=== PATIENT | male | born 1945 | race Hispanic/Latino ===

== ENCOUNTER → 2018-06-25 | Day surgery (SDC) | payer OTHER ==
[2018-06-24 14:55] LABS: BASOPHILS # (AUTO) 0.1 (0.0-0.1); BASOPHILS % 0.6 % (0.0-1.0); EOSINOPHILS # (AUTO) 0.7 (0.0-0.4); EOSINOPHILS % 5.3 % (0.0-6.0); HEMATOCRIT 50.3 % (38.2-49.6); HEMOGLOBIN 16.8 g/dL (14.0-18.0); LYMPHOCYTES # (AUTO) 1.9 (1.0-3.2); LYMPHOCYTES % 14.8 % (18.0-39.1); MEAN CORPUSCULAR HEMOGLOBIN 29.4 pg (28-32); MEAN CORPUSCULAR HGB CONC 33.4 g/dL (31-35); MEAN CORPUSCULAR VOLUME 88.1 fL (81-99); MONOCYTES # (AUTO) 0.8 (0.2-0.8); MONOCYTES % 6.1 % (4.4-11.3); NEUTROPHILS # (AUTO) 9.3 (2.1-6.9); NEUTROPHILS % 72.9 % (38.7-80.0); PLATELET COUNT 262 x10e3/uL (140-360); RED BLOOD COUNT 5.71 x10e6/uL (4.3-5.7); RED CELL DISTRIBUTION WIDTH 13.4 % (11.7-14.4)
[2018-06-24 15:12] LABS: INR 0.85; PROTHROMBIN TIME 12.4 seconds (11.9-14.5)
[2018-06-24 15:13] LABS: PARTIAL THROMBOPLASTIN TIME 30.1 seconds (23.8-35.5)
[2018-06-24 15:19] LABS: ALANINE AMINOTRANSFERASE 21 IU/L (0-55); ALBUMIN 3.9 g/dL (3.5-5.0); ALBUMIN/GLOBULIN RATIO 0.7 (0.8-2.0); ALKALINE PHOSPHATASE 107 IU/L (40-150); ANION GAP 18.2 mmol/L (8-16); BLOOD UREA NITROGEN 15 mg/dL (7-26); BUN/CREATININE RATIO 14 (6-25); CALCIUM 9.8 mg/dL (8.4-10.2); CARBON DIOXIDE 21 mmol/L (22-29); CHLORIDE 104 mmol/L (98-107); CREATININE, SERUM 1.08 mg/dL (0.72-1.25); EST GLOMERULAR FILTRATION RATE > 60 ML/MIN (60-); GLUCOSE 121 mg/dL (74-118); POTASSIUM 4.2 mmol/L (3.5-5.1); SODIUM 139 mmol/L (136-145)
--- NOTE | 2018-06-24 15:27 | Diagnostic Imaging Report ---
EXAMINATION: PA and lateral views of the chest. COMPARISON: 05/11/2012 CLINICAL HISTORY: Preoperative study for heart catheterization DISCUSSION: Lungs are well-inflated. Symmetric, coarse bilateral reticular opacities with a central predominance, progressed. No pleural effusion or focal airspace consolidation. Left subclavian approach triple lead cardiac device is noted, with leads projecting over the right atrium, right ventricle, and coronary sinus. Heart size is normal. Mildly tortuous thoracic aorta. No acute osseous abnormality. Multilevel degenerative disc changes of the thoracic spine. Surgical clips project over the upper abdomen compatible with prior cholecystectomy. IMPRESSION: Interval progression of coarse reticular opacities compatible with interstitial lung disease/pulmonary fibrosis relative to 05/11/2012. Signed by: Dr. Arian Gil M.D. on 06/24/2018 3:23 PM
[2018-06-25] VITALS (9 sets, daily range): BP systolic 126–154; BP diastolic 61–73
[~2018-06-25] VITALS: Ht 165.1 cm; Wt 81.6 kg
[~2018-06-25] MED LIST: ASPIRIN EC81 MG PO; CATAPRES-TTS 21 EACH PO; FENTANYL CITRATE/PF 100MCG/2 ML INJ ONE; HEPARIN SOD/SOD CHLORIDE 2,000 ML ONE; IBUPROFEN600 MG PO; IOPAMIDOL 370 MG/ML 200 ML INFUS..BTL INJ ONE; LIDOCAINE HCL 2% LOCAL 20 ML VIAL ONE; MELOXICAM7.5 MG PO; MIDAZOLAM HCL 2 MG/2 ML VIAL ONE; NEXIUM40 MG; SODIUM CHLORIDE 0.9% 1000ML 1,000 ML ONE; Z.0.ALLOPURINOL300 M PO; Z.0.AMLODIPINE BESY1 PO; Z.0.BENAZEPRIL HCL20 PO; Z.0.FLUTICASONE PRO1 NS; Z.0.LIPITOR20 MG PO; Z.0.SIMVASTATIN10 MG PO; Z.2.METFORMIN HCL500 PO; [UNRECOGNIZED DRUG - OTHER] PO
--- OUTSIDE RECORDS SUMMARY | 2018-06-25 06:29 | XMS REPORT ---
Author Author [facility] Address Unknown Phone Unavailable Care Team Providers Care Educational Administration Teacher Name Role Phone PAMELA MCCRAY Unavailable Unavailable Problems This patient has no known problems. Allergies, Adverse Reactions, Alerts This patient has no known allergies or adverse reactions. Medications This patient has no known medications. Results Test Description Test Time Test Comments Text Results Atomic Results Result Comments CHEST 2 VIEWS 2018-06-24 15:17:00 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 FREDERICK RISON: 05/11/2012 CLINICAL HISTORY: Preoperative study for heart catheterization DISCUSSION: Lungs are well-inflated. Symmetric, coarse bilateral reticular opacities with a central predominance, progressed. No pleural effusion or focal airspace consolidation. Left subclavian approach triple lead cardiac device is noted, with leads projecting over the right atrium, right ventricle, and coronary sinus. Heart size is normal. Mildly tortuous thoracic aorta. No acute osseous abnormality. Multilevel degenerative disc changes of the thoracic spine. Surgical clips project over the upper abdomen compatible with prior cholecystectomy. IMPRESSION: Interval progression of coarse reticular opacities compatible with interstitial lung disease/pulmonary fibrosis relative to 05/11/2012. Signed by: Dr. Pamela Shanks M.D. on 06/24/2018 3:23 PM Dictated By: PAMELA SHANKS MD 1523 Transcrib ed By: ANILA on 06/24/18 1523 COPY TO: PAMELA MCCRAY MD
--- NOTE | 2018-06-25 09:23 | Operative Report ---
DATE OF PROCEDURE: PROCEDURE: Left heart catheterization. INDICATIONS: Coronary artery disease and angina. COMPLICATIONS: None. ANESTHESIA: Versed, fentanyl, and lidocaine. TECHNIQUE: The right groin was draped and prepped in the usual fashion. The area was anesthetized with lidocaine. Standard Seldinger technique was used to place a 6-Sinhala sheath into the right femoral artery without difficulty. A JL4 catheter was used to selectively engage the left coronary artery. A 3DRC catheter was used to selectively engage the right coronary artery. A pigtail catheter was used to perform a left ventriculogram. There were no complications. Results are as follows: 1. There was a normal left main trunk. 2. There was a large left anterior descending artery, which gave rise to a medium-size diagonal branch. There was minimal disease in the left anterior descending artery and diagonal branch. 3. There was a medium-size AV circumflex artery, which gave rise to a large bifurcating obtuse marginal branch. There was minimal disease in the AV circumflex and obtuse marginal branch. 4. There was a large dominant right coronary artery with minimal disease. 5. There was normal left ventricular size with mild global left ventricular dysfunction and an ejection fraction of 45%. CONCLUSION: The patient has some mild nonobstructive coronary artery disease with no significant stenosis. Job#: [id number]
== END | disposition home or self-care (01) ==
LOC: CATH LAB 06:27
PROVIDERS: ATTEND Internal Medicine Cardiovascular Disease
DX: I25.118 Atherosclerotic heart disease of native coronary artery with other forms of angina pectoris (principal); I11.0 Hypertensive heart disease with heart failure; I50.22 Chronic systolic (congestive) heart failure; I47.2 Ventricular tachycardia; E78.5 Hyperlipidemia, unspecified; E11.9 Type 2 diabetes mellitus without complications; Z01.810 Encounter for preprocedural cardiovascular examination; Z01.812 Encounter for preprocedural laboratory examination; Z01.818 Encounter for other preprocedural examination; Z79.82 Long term (current) use of aspirin; Z79.84 Long term (current) use of oral hypoglycemic drugs; Z95.810 Presence of automatic (implantable) cardiac defibrillator; Z96.659 Presence of unspecified artificial knee joint
CPT/HCPCS: 36415 ×2; 71046; 80053; 82948; 85025; 85610; 85730; 93005; 93458; C1760; C1769; J2001; J2250; J7030; Q9967

== ENCOUNTER 2019-09-20 14:30 | Outpatient (RCR) | payer OTHER ==
[~2019-09-20 14:30] MED LIST changes: -FENTANYL CITRATE/PF 100MCG/2 ML INJ ONE; -HEPARIN SOD/SOD CHLORIDE 2,000 ML ONE; -IOPAMIDOL 370 MG/ML 200 ML INFUS..BTL INJ ONE; -LIDOCAINE HCL 2% LOCAL 20 ML VIAL ONE; -MIDAZOLAM HCL 2 MG/2 ML VIAL ONE; -SODIUM CHLORIDE 0.9% 1000ML 1,000 ML ONE
== END 2019-10-18 ==
LOC: RESP 14:30
PROVIDERS: ATTEND Internal Medicine
DX: J84.9 Interstitial pulmonary disease, unspecified (principal)

== ENCOUNTER 2019-09-25 13:48 | Emergency (ER) | payer OTHER ==
[~2019-09-25] VITALS: Ht 162.6 cm; Wt 68.0 kg
--- NOTE | 2019-09-25 14:57 | NUR ---
PER MD ORDER, REMOVE SAMUELS AT THIS TIME.
--- NOTE | 2019-09-25 15:04 | NUR ---
SAMUELS REMOVED WITH NO DIFFICULTY. PT PROVIDED WITH INSTRUCTIONS THAT IF HE IS UNABLE TO VOID WITHIN 6 HOURS (BY 2100) TO RETURN TO ER. PT AND VERBALIZED AN UNDERSTANDING
[2019-09-25 15:31] VITALS: BP 139/81
== END 2019-09-25 15:33 | disposition home or self-care (01) ==
LOC: ER 13:48
DX: Z46.6 Encounter for fitting and adjustment of urinary device (principal); I10 Essential (primary) hypertension; E11.9 Type 2 diabetes mellitus without complications; J98.9 Respiratory disorder, unspecified
CPT/HCPCS: 99282

== ENCOUNTER 2021-04-30 12:51 | Emergency (ER) | payer OTHER ==
[~2021-04-30] VITALS: Ht 162.6 cm; Wt 68.0 kg
== END 2021-04-30 14:43 | disposition home or self-care (01) ==
LOC: ER 14:10
DX: R19.7 Diarrhea, unspecified (principal); R11.2 Nausea with vomiting, unspecified; I10 Essential (primary) hypertension; E11.9 Type 2 diabetes mellitus without complications; J84.10 Pulmonary fibrosis, unspecified
CPT/HCPCS: 99282

== ENCOUNTER 2021-07-25 14:55 | Emergency (ER) | payer MEDICARE, OTHER ==
[~2021-07-25] VITALS: Ht 162.6 cm; Wt 68.0 kg
[2021-07-25] MEDS ORDERED: TETANUS/DIPHTHERIA TOX ADULT 0.5 ML SYR IM ONE (15:15)
[2021-07-25] MEDS ORDERED: ACETAMINOPHEN 325 MG TAB PO ONE (15:15)
== END 2021-07-25 16:43 | disposition home or self-care (01) ==
LOC: ER 15:23
DX: S01.111A Laceration without foreign body of right eyelid and periocular area, initial encounter (principal); S80.211A Abrasion, right knee, initial encounter; W01.0XXA Fall on same level from slipping, tripping and stumbling without subsequent striking against object, initial encounter; Y93.01 Activity, walking, marching and hiking; Y92.008 Other place in unspecified non-institutional (private) residence as the place of occurrence of the external cause; I10 Essential (primary) hypertension; E11.9 Type 2 diabetes mellitus without complications; J84.10 Pulmonary fibrosis, unspecified
CPT/HCPCS: 70450; 71101; 72125; 90714; 99283

== ENCOUNTER → 2021-08-19 | Outpatient (RCR) | payer MEDICARE | LOC: RESP 09:27 | PROVIDERS: ATTEND Internal Medicine | DX: J67.9 Hypersensitivity pneumonitis due to unspecified organic dust (principal); J84.10 Pulmonary fibrosis, unspecified | CPT/HCPCS: 94799 ==

== ENCOUNTER 2021-08-28 09:00 | Outpatient (RCR) | payer MEDICARE | END 2021-09-16 | LOC: RESP 09:00 | PROVIDERS: ATTEND Internal Medicine | DX: J84.10 Pulmonary fibrosis, unspecified (principal) | CPT/HCPCS: 94626 ×4; G0238 ×4 ==